=== PATIENT | female | born 1985 | race Two or more races ===

== ENCOUNTER 2019-11-05 13:45 | Inpatient (IN) | payer OTHER ==
--- NOTE | 2019-11-05 15:27 | HP ---
Past Medical History - Admission Chief Complaint: IOL History of Present Illness: 34yo @ 39.0wks by LMP, ED 11/12/19 here for IOL, elective due to logistical reasons. Pt is grand multip, living far from the hospital with limited resources and transportation. Pt has had 5 NSVDs in [facility], all at home. PNC @ [facility] with transfer to [facility] R Dubose on 11/03 Preg c/b: AMA, grand multiparity, History of 5 NSVDs with her second child born at home and passing away shortly thereafter. 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: Alzheimer's, CVA, Dementia, Migraine, Multiple Sclerosis, Peripheral Neuropathy, Parkinson's, Seizure, Syncope, TIA, Vertigo, Other Cardiovascular: No: AFIB, Aneurysm, Aortic Insufficiency, Aortic Stenosis, CAD, CHF, Deep Vein Thrombosis, HTN, Hyperlipdemia, MD, Mitral Insufficiency, Mitral Stenosis, Murmur, Pulmonary Hypertension, Other Pulmonary: No: Asthma, Bronchitis, Cancer, COPD, O2 Dependent, Pneumonia, Previously Intubated, Pulmonary Embolus, Pulmonary Fibrosis, Sleep Apnea, Other Gastrointestinal: No: Ascites, Cancer, Constipation, Crohn's Disease, Diverticulitis, Diverticulosis, Esophageal Varices, Gastritis, GERD, GI Bleed, Hemorrhoids, Hiatal Hernia, Inflamatory Bowel Disease, Irritable Bowel Disease, Pancreatitis, Peptic Ulcer Disease, Ulcerative Colitis, Other Hepatobiliary: No: Cirrhosis, Cholelithiasis, Cholecystitis, Choledocholithiasis, Hepatitis A, Hepatitis B, Hepatitis C, Other Renal/: No: Renal Failure, Renal Inusuff, BPH, Cancer, Hematuria, Hemodialysis, Neurogenic Bladder, Renal Calculi, UTI, Other Reproductive: No: Ectopic , Endometriosis, Fibroids, PID, Polycystic Ovary Syndrome, Postmenopausal, Other ...: 6 ...Para: 5 ...Term: 5 ...: 0 ...Spon : 0 ...Induced : 0 ...Living Children: 4 ... Weeks Gestation by Dates: 39.0 ...EDC by Dates: 11/12/19 ...EDC by Elizabeth: 11/19/19 Heme/Onc: Yes: Anemia Infectious Disease: No: AIDS, C-Diff, Herpes Zoster, HIV, MRSA, STD's, Tuberculosis, VREF, Other Psych: No: Addictions, Anxiety, Bipolar, Depression, Panic, Psychosis, Schizophrenia, Other Musculoskeletal: No: Bursitis, Chronic low back pain, Hemiparesis, Hemiplegia, Osteoarthritis, Paraplegia, Other Rheumatology: No: Fibromyalgia, Gout, Lupus, Rheumatoid Arthritis, Sarcoidosis, Vasculitis, Other ENT: No: Allergic Rhinitis, Sinusitis, Other Endocrine: No: Marshall's Disease, Geno's Disease, Diabetes Insipidus, Diabetes Mellitus, Hyperparathyroidism, Hyperthyroidism, Hypothyroidism, Osteopenia, SIADH, Other - Past Surgical History Past Surgical History: Yes: None Hx Myomectomy: No Hx Transabdominal Cerclage: No - Smoking History Smoking history: Never smoked Have you smoked in the past 12 months: No - Alcohol/Substance Use Hx Alcohol Use: No History of Substance Use: reports: None - Social History Usual Living Arrangement: Yes: With Spouse, With Significant Other Do you think of yourself as: Straight/Heterosexual History of Recent Travel: No Home Medications - Allergies Allergies/Adverse Reactions: Allergies Allergy/AdvReac Type Severity Reaction Status Date / Time No Known Allergies Allergy Verified 11/05/19 16:31 - Home Medications Home Medications: Ambulatory Orders Tablet 1 tab PO DAILY 11/05/19 Review of Systems - Review of Systems Constitutional: reports: No Symptoms Cardiovascular: reports: No Symptoms Respiratory: reports: No Symptoms Physical Exam - Maternity Constitutional: Yes: Well Nourished, No Distress, Calm - Abdominal Exam/OB Contractions: Yes Regularity: Irregular Intensity: Unaware Monitor Mode: External Heart Rate Location: [facility] Category: I Accelerations: Non-Uniform Decelerations: None - Vaginal Exam/OB Vaginal Bleeding: No Speculum Exam: No Dilatation (cm): 3 Effacement (%): 50 Amniotic Membrane Status: Intact Presentation: Vertex/Position Station: -3 Imaging - Results Ultrasound: Report Reviewed Problem List - Problems (1) 39 weeks gestation of Code(s): Z3A.39 - 39 WEEKS GESTATION OF Assessment/Plan 34yo @ 39.0wks here for IOL, given social circumstances Admit to L&D IVFs Admission labs including COVID CEFM/[place], Cat 1 tracing Pitocin/AROM Epidural prn Anticipate Monica Barros MD
[2019-11-05] MEDS ORDERED: OXYTOCIN 30 UNITS in 0.9% NS 30 UNIT/500 ML INFUS.BAG IVPB SCH (15:30)
[2019-11-05] MEDS ORDERED: ELECTROLYTE-148 SOLN 1,000 ML IV SCH (15:30)
[2019-11-05 16:28] VITALS: BMI 25.2
[2019-11-05] MEDS ORDERED: OXYTOCIN 30 UNITS in 0.9% NS 30 UNIT/500 ML INFUS.BAG IVPB ONE (16:35)
[2019-11-05 17:25] LABS: BASO % 0.1 % (0-2.0); EOS % 0.6 % (0-4.5); HEMOGLOBIN 12.6 GM/dL (10.7-15.3); LYMPH % 16.4 % (8-40); MCH 30.2 pg (25.7-33.7); MCHC 33.3 g/dl (32.0-36.0); MEAN CELL VOLUME 90.7 fl (80-96); MEAN PLT VOLUME 8.6 fl (7.5-11.1); NEUT % 74.9 % (42.8-82.8); PLATELET COUNT 209 K/MM3 (134-434); RBC 4.18 M/mm3 (3.60-5.2); RDW 14.3 % (11.6-15.6); WHITE BLOOD COUNT 6.8 K/mm3 (4.0-10.0)
[2019-11-05 17:32] LABS: INR 0.95 (0.83-1.09); PROTHROMBIN TIME (PATIENT) 11.2 SEC (9.7-13.0)
[2019-11-05 17:35] LABS: ACTIVATED PTT 27.2 SECONDS (25.2-36.5)
[2019-11-05 17:48] LABS: BLOOD UREA NITROGEN 8.5 mg/dL (7-18); CALCIUM 8.3 mg/dL (8.5-10.1); CREATININE 0.5 mg/dL (0.55-1.3); POTASSIUM 3.6 mmol/L (3.5-5.1)
--- NOTE | 2019-11-05 20:29 | PN ---
Progress Note, Labor Vaginal Exam #1 Labor Exam Date: 11/05/19 Labor Exam Time: 19:30 Heart Rate (range): Cat 1 Dilatation: 4 Effacement (%): 60 Amniotic Membrane Status: Intact Presentation: Vertex/Position Station: +1 Remarks: AROM, clears Continue pitocin Anticipate Monica Barros MD
[2019-11-05] MEDS ORDERED: ACETAMINOPHEN 325 MG TABLET (FP) PO PRN (22:04)
[2019-11-05] MEDS ORDERED: BENZOCAINE 28 GM HEMORRHOIDAL OINTMENT TP PRN (22:04)
[2019-11-05] MEDS ORDERED: METHYLERGONOVINE MALEATE 0.2 MG/1 ML AMP IM PRN (22:04)
[2019-11-05] MEDS ORDERED: WITCH HAZEL 50% (TUCKS) 40 PAD/JAR PAD TP PRN (22:04)
[2019-11-05] MEDS ORDERED: BISACODYL 10 MG SUPP.RECT RC PRN (22:04)
[2019-11-05] MEDS ORDERED: IBUPROFEN 600 MG TABLET (FP) PO PRN (22:04)
[2019-11-05] MEDS ORDERED: BENZOCAINE 20% 57 GM BOTTLE TP PRN (22:04)
--- NOTE | 2019-11-05 22:04 | PN ---
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 Patient delivered spontaneously and called out after delivery of baby. MD arrived to room, baby on mother's chest. 39 week gestation. No anesthesia. Cord clamped and cut. Weight pending. Apgars 9/9. Spontaneous delivery of intact placenta with 3VC. Fundus firm. Perineum inspected, no lacerations. EBL 250ml. Mother and baby doing well. Reena Barros MD
[2019-11-05] MEDS: OXYTOCIN 20 UNITS in 0.9% NS 20 UNIT/1,000 ML INFUS.BAG IV SCH (22:15)
[2019-11-05] MEDS ORDERED: OXYTOCIN 20 UNITS in 0.9% NS 20 UNIT/1,000 ML INFUS.BAG IV ONE (22:20)
[2019-11-06] MEDS: OXYTOCIN 20 UNITS in 0.9% NS 20 UNIT/1,000 ML INFUS.BAG IV SCH (03:30)
[2019-11-06 07:48] LABS: BASO % 0.2 % (0-2.0); EOS % 0.3 % (0-4.5); HEMATOCRIT 36.5 % (32.4-45.2); HEMOGLOBIN 12.1 GM/dL (10.7-15.3); LYMPH % 11.3 % (8-40); MCH 30.4 pg (25.7-33.7); MEAN CELL VOLUME 92.1 fl (80-96); MEAN PLT VOLUME 8.7 fl (7.5-11.1); MONO % 6.4 % (3.8-10.2); NEUT % 81.8 % (42.8-82.8); PLATELET COUNT 197 K/MM3 (134-434); RBC 3.97 M/mm3 (3.60-5.2); RDW 14.1 % (11.6-15.6)
--- NOTE | 2019-11-06 08:43 | PN ---
Post Progress Note Type of Delivery: Vital Signs: Vital Signs Temperature 98.0 F 11/06/19 08:22 Pulse Rate 60 11/06/19 08:22 Respiratory Rate 18 11/06/19 08:22 Blood Pressure 90/51 L 11/06/19 08:22 O2 Sat by Pulse Oximetry (%) 98 11/06/19 08:22 Uterus: Yes: Fundus below umbilicus Abdomen/GI: Yes: Abdomen soft, Tolerating PO Lochia: Yes: Rubra Lochia, amount: Small Extremities: Yes: Calves non-tender - Labs Labs: CBC WBC 10.0 K/mm3 (4.0-10.0) 11/06/19 07:03 RBC 3.97 M/mm3 (3.60-5.2) 11/06/19 07:03 Hgb 12.1 GM/dL (10.7-15.3) 11/06/19 07:03 Hct 36.5 % (32.4-45.2) 11/06/19 07:03 MCV 92.1 fl (80-96) 11/06/19 07:03 MCH 30.4 pg (25.7-33.7) 11/06/19 07:03 MCHC 33.0 g/dl (32.0-36.0) 11/06/19 07:03 RDW 14.1 % (11.6-15.6) 11/06/19 07:03 Plt Count 197 K/MM3 (134-434) 11/06/19 07:03 MPV 8.7 fl (7.5-11.1) 11/06/19 07:03 Absolute Neuts (auto) 8.2 K/mm3 (1.5-8.0) H 11/06/19 07:03 Neutrophils % 81.8 % (42.8-82.8) 11/06/19 07:03 Lymphocytes % 11.3 % (8-40) D 11/06/19 07:03 Monocytes % 6.4 % (3.8-10.2) 11/06/19 07:03 Eosinophils % 0.3 % (0-4.5) 11/06/19 07:03 Basophils % 0.2 % (0-2.0) 11/06/19 07:03 Nucleated RBC % 0 % (0-0) 11/06/19 07:03 Problem List - Problems (1) 39 weeks gestation of Code(s): Z3A.39 - 39 WEEKS GESTATION OF Assessment/Plan 34yo s/p , PPD#1 Routine PP care PO pain control D/C to home PPD#2 Monica Barros MD
[2019-11-06] MEDS: PRENATAL VITAMINS W/ FOLIC ACID TABLET (FP) PO SCH (09:35)
[2019-11-06] MEDS ORDERED: SENNOSIDES/DOCUSATE COMBO (SENNA PLUS) TABLET (UD) PO PRN (22:00)
--- NOTE | 2019-11-07 06:29 | DS ---
Physical Exam-AD TRAFFICKER Vital Signs: Vital Signs Temperature 98.5 F 11/06/19 22:00 Pulse Rate 67 11/06/19 22:00 Respiratory Rate 18 11/06/19 22:00 Blood Pressure 91/58 L 11/06/19 22:00 O2 Sat by Pulse Oximetry (%) 98 11/06/19 14:00 Constitutional: Yes: Well Nourished, No Distress, Calm Eyes: Yes: WNL, Conjunctiva Clear, EOM Intact HENT: Yes: WNL, Atraumatic, Normocephalic Neck: Yes: WNL, Supple, Trachea Midline Cardiovascular: Yes: WNL, Regular Rate and Rhythm Respiratory: Yes: WNL, Regular, CTA Bilaterally Gastrointestinal: Yes: WNL ...Rectal Exam: Yes: WNL Renal/: Yes: WNL ....Post : Yes: Uterus firm, Uterus non-tender, Slight lochia rubra Breast(s): Yes: WNL Musculoskeletal: Yes: WNL Extremities: Yes: WNL Edema: No Integumentary: Yes: WNL Neurological: Yes: WNL, Alert, Oriented ...Motor Strength: WNL Psychiatric: Yes: WNL, Alert, Oriented Labs: CBC, BMP 11/06/19 07:03 11/05/19 16:51 Delivery - Delivery Vaginal Delivery: Spontaneous Type of Anesthesia: None Episiotomy/Laceration: None EBL (cc): 250 Delivery, Single - Stages of Labor Date 1st Stage Initiatied: 11/05/19 Time 1st Stage Initiated: 15:00 Date 2nd Stage Initiated: 11/05/19 Time 2nd Stage Initiated: 19:30 Date of Delivery: 11/05/19 Time of Delivery: 21:46 Time Placenta Delivered: 21:53 Placenta: Yes: Spontaneous - Condition of 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 Gender: Female Weight: 6 lb 9 oz Total Hours ROM (Hrs/Mins): 2 hrs 16 mins - 1 Minute Total Score: 9 5 Minutes Total Score: 9 - [place] Feeding Plan Initial Plan: Elected not to breastfeed exclusively throughout hospitalization Discharge Summary Problems reviewed: Yes Reason For Visit: INDUCTION OF LABOR Current Active Problems 39 weeks gestation of (Acute) Procedures: Principal: Hospital Course: no complication Condition: Stable - Instructions Diet, Activity, Other Instructions: Regular Diet Follow up in 4 weeks for your visit Referrals: Reena Barros MD [Staff Physician] - Disposition: HOME - Home Medications Comprehensive Discharge Medication List: Ambulatory Orders Tablet 1 tab PO DAILY 11/05/19 Breast Pump 1 each MC 5XD 30 Days #1 each 11/06/19 Ibuprofen 600 mg PO Q6H PRN #30 tablet 11/06/19
[2019-11-07] MEDS: PRENATAL VITAMINS W/ FOLIC ACID TABLET (FP) PO SCH (09:20)
[2019-11-07 09:50] VITALS: BP 100/52; PULSE 61; TEMP 98.2
== END 2019-11-07 11:20 | disposition home or self-care (01) | DRG 560 ==
LOC: JLDR 13:45 → J3W 11-06 00:08
PROVIDERS: ADMIT Obstetrics & Gynecology; ATTEND Obstetrics & Gynecology
PROC: 10E0XZZ Delivery of Products of Conception, External Approach (ICD-10-PCS; principal; 2019-11-05)
PROC: 3E033VJ Introduction of Other Hormone into Peripheral Vein, Percutaneous Approach (ICD-10-PCS; 2019-11-05)
PROC: 10907ZC Drainage of Amniotic Fluid, Therapeutic from Products of Conception, Via Natural or Artificial Opening (ICD-10-PCS; 2019-11-05)
DX: O80 Encounter for full-term uncomplicated delivery (principal); Z3A.39 39 weeks gestation of pregnancy; Z37.0 Single live birth
CPT/HCPCS: 36415; 59409; 80048; 85025; 85610; 85730; 86780; 86850; 86900; 86901; 87389; U0003